=== PATIENT | female | born 1985 | race Native Hawaiian/Other Pacific Islander ===

== ENCOUNTER 2017-01-16 21:27 | Emergency (ER) | payer OTHER ==
[~2017-01-16] VITALS: Ht 162.6 cm; Wt 83.2 kg
[~2017-01-16 21:27] MED LIST: BACT800T5 PO
[2017-01-16 21:35] VITALS: BP 131/87; PULSE 91; RESP 16; TEMP 98.4; O2SAT 99
[2017-01-16] MEDS ORDERED: PRENTAB7 PO (21:53)
[2017-01-16] MEDS ORDERED: SODIUM CHLORIDE 0.9% FLUSH 10 ML FLUSH IV FLUSH PRN (22:00)
[2017-01-16 22:19] LABS: BLOOD, URINE LARGE (NEG); GLUCOSE,URINE NEG (NEG); KETONE, URINE NEG (NEG); NITRITE,URINE NEG (NEG); PH, URINE 5.5 (5.0-8.5)
[2017-01-16 22:20] LABS: AUTOMATED NEUTROPHIL # 6.9 TH/MM3 (1.8-7.7); BASOPHIL # 0.3 TH/MM3 (0-0.2); BASOPHIL % 2.4 % (0.0-2.0); EOSINOPHIL # 0.2 TH/MM3 (0-0.4); EOSINOPHIL % 2.1 % (0.0-4.0); HEMATOCRIT 40.9 % (35.0-46.0); LYMPH % 31.6 % (9.0-44.0); LYMPHOCYTE # 3.6 TH/MM3 (1.0-4.8); MEAN CELL VOLUME 86.9 FL (80.0-100.0); MEAN CORPUSCULAR HEMOGLOBIN 28.5 PG (27.0-34.0); MEAN CORPUSCULAR HGB CONC 32.8 % (32.0-36.0); MONO % 4.3 % (0.0-8.0); NEUT % 59.6 % (16.0-70.0); PLATELET COUNT 307 TH/MM3 (150-450); RED CELL DISTRIBUTION WIDTH 12.7 % (11.6-17.2); WHITE BLOOD COUNT 11.5 TH/MM3 (4.0-11.0)
[2017-01-16 22:21] LABS: HEMO FLAGS DIFF FINAL
--- NOTE | 2017-01-16 22:25 | PD ---
HPI Chief Complaint: Related Problem Time Seen by Provider: 21:40 Travel History International Travel<30 days: No Contact w/Intl Traveler<30days: No Traveled to known affect area: No History of Present Illness HPI 31 yo f presents to the ED with a cc of three days of spotting with a confirmed by home Urine hCG test. She believes that she is roughly 9 weeks 6 days by LMP. She acknowledges some faint lower abdominal cramping and flank pain. No nausea or vomiting. No CP/SOB. Her first two pregnancies were high risk due to preeclampsia and GDM. She is taking vitamins and folic acid. She continues to smoke roughly a pack a day. She has not yet been to see her OB. Unsure of last pelvic exam. No fevers or rigors. No urinary sx. patient states that yesterday she had some mild cramping which was actually less than her period is usually. Denies any abdominal pain currently. PFSH Past Medical History Asthma: Yes Cardiovascular Problems: Yes (Heart murmur) Diabetes: No Diminished Hearing: No Immunizations Current: Yes Influenza Vaccination: No ?: LMP: 11/08/2016 : 3 Para: 2 Past Surgical History Section: Yes (X 2) Gynecologic Surgery: Yes ( x2) Social History Alcohol Use: No Tobacco Use: Yes (1/2 PPD ) Substance Use: No Allergies-Medications (Allergen,Severity, Reaction): Coded Allergies: shellfish derived (Verified Allergy, Severe, 01/16/17) Reported Meds & Prescriptions Reported Meds & Active Scripts Active Reported Vitamins Tablet (Pnv No.95/Ferrous Fum/Folic AC) 28 Mg Iron-800 Mcg Tablet 1 Tab PO DAILY Review of Systems Except as stated in HPI: all other systems reviewed are Neg Physical Exam Narrative GENERAL: patient is laying in bed in no acute distress SKIN: Warm and dry. HEAD: Atraumatic. Normocephalic. EYES: Pupils equal and round. No scleral icterus. No injection or drainage. ENT: No nasal bleeding or discharge. Mucous membranes pink and moist. NECK: Trachea midline. No JVD. CARDIOVASCULAR: Regular rate and rhythm. I/ systolic murmur RESPIRATORY: No accessory muscle use. Clear to auscultation. Breath sounds equal bilaterally. GASTROINTESTINAL: Abdomen soft, minimally tender to palpation in the suprapubic region, nondistended. Hepatic and splenic margins not palpable. GYNECOLOGICAL: Exam performed with female nurse supervisor [employer] service present all times, there is minimal amount of blood in the vaginal vault, cervix is closed, no cervical motion tenderness no bimanual tenderness. Uterus is not significantly enlarged consistent with a very early gestational age. MUSCULOSKELETAL: Extremities without clubbing, cyanosis, or edema. No obvious deformities. NEUROLOGICAL: Awake and alert. No obvious cranial nerve deficits. Motor grossly within normal limits. Five out of 5 muscle strength in the arms and legs. Normal speech. PSYCHIATRIC: Appropriate mood and affect; insight and judgment normal. Data Data Last Documented VS Vital Signs Date Time Temp Pulse Resp B/P (MAP) Pulse Ox O2 Delivery O2 Flow Rate FiO2 01/16/17 23:43 100 Room Air 01/16/17 23:41 97 16 01/16/17 21:35 98.4 Orders Orders Urinalysis - C+S If Indicated (01/16/17 21:40) Ed Urine Pregnancytest Poc (01/16/17 21:40) Beta Hcg (Quant/Titer) (01/16/17 21:51) Complete Blood Count With Diff (01/16/17 21:51) Iv Access Insert/Monitor (01/16/17 21:51) Ecg Monitoring (01/16/17 21:51) Oximetry (01/16/17 21:51) Sodium Chloride 0.9% Flush (Ns Flush) (01/16/17 22:00) Ed Poc Ultrasound (01/16/17 21:51) Wet Prep Profile (01/16/17 21:51) Gc And Chlamydia Pcr (01/16/17 21:51) Ed Discharge Order (01/16/17 23:21) Labs Laboratory Tests Test 01/16/17 22:06 01/16/17 22:10 01/16/17 23:17 Urine Color STRAW Urine Turbidity CLEAR Urine pH 5.5 Urine Specific [place] 1.004 Urine Protein NEG mg/dL Urine Glucose (UA) NEG mg/dL Urine Ketones NEG mg/dL Urine Occult Blood LARGE Urine Nitrite NEG Urine Bilirubin NEG Urine Leukocyte Esterase NEG Urine RBC 0-3 /hpf Urine Squamous Epithelial Cells 0-5 /hpf Urine Amorphous Sediment FEW Urine Bacteria OCC /hpf Microscopic Urinalysis Comment CULT NOT INDICATED White Blood Count 11.5 TH/MM3 Red Blood Count 4.70 MIL/MM3 Hemoglobin 13.4 GM/DL Hematocrit 40.9 % Mean Corpuscular Volume 86.9 FL Mean Corpuscular Hemoglobin 28.5 PG Mean Corpuscular Hemoglobin Concent 32.8 % Red Cell Distribution Width 12.7 % Platelet Count 307 TH/MM3 Mean Platelet Volume 9.5 FL Neutrophils (%) (Auto) 59.6 % Lymphocytes (%) (Auto) 31.6 % Monocytes (%) (Auto) 4.3 % Eosinophils (%) (Auto) 2.1 % Basophils (%) (Auto) 2.4 % Neutrophils # (Auto) 6.9 TH/MM3 Lymphocytes # (Auto) 3.6 TH/MM3 Monocytes # (Auto) 0.5 TH/MM3 Eosinophils # (Auto) 0.2 TH/MM3 Basophils # (Auto) 0.3 TH/MM3 CBC Comment DIFF FINAL Differential Comment Human Chorionic Gonadotropin, Quant 9652 MIU/ML Clue Cells (Wet Prep) PRESENT Vaginal Trichomonas (Wet Prep) NONE SEEN Vaginal Yeast (Wet Prep) NONE SEEN MDM Medical Decision Making Medical Screen Exam Complete: Yes Emergency Medical Condition: Yes Differential Diagnosis spontaneous , threatened , ectopic , intrauterine , Narrative Course Patient last type and cross here did show Rh+ blood. Her abdomen is completely benign and she is not endorsing any abdominal pain currently. I think ectopic is very low on the differential diagnosis. Beta hCG is 9000, H&H is within normal limits. Exam is fairly benign. Think her presentation really is consistent with a threatened miscarriage. Bedside ultrasound was discussed with the patient is inconclusive for intrauterine with highly suggestive of. Given her benign abdomen I think it may be overly cautious to disorder official ultrasound now. After complete discussion of the risks of ectopic with the patient and my index is suspicion she would like to forego internal pelvic ultrasound at this time. I discussed with her that she needs to return in 48 hours for repeat hCG and consideration of an ultrasound at that time. She verbalized understanding and agreement. She also has an appointment with her DRUM MAKER to establish in 4 days from now. Discussed that if she should have any abdominal pain she should return to emergency department immediately for ultrasound. She verbalizes understanding and agreement. Procedures Procedure Narrative Bedside ultrasound abdomen: Transabdominal views of the uterus with limited secondary to shadow artifact. Appears to have a gestational sac and probably faint yolk sac. Still been views are limited given that shadow artifact and are limited utility. No free fluid in the abdomen or pelvis. Diagnosis Primary Impression: Vaginal bleeding affecting early Additional Instructions: Return to ER in 48 hours for repeat blood work and consideration of ultrasound. Disposition: 01 DISCHARGE HOME Condition: Stable Young Archibald MD Jan 16, 2017 22:25
[2017-01-16 22:31] LABS: URINE COLOR STRAW (YELLW/STRAW)
[2017-01-16 22:32] LABS: BACTERIA, URINE OCC /hpf
[2017-01-16 22:33] LABS: RBC, URINE 0-3 /hpf (0-3); SQUAMOUS EPITHELIAL CELL URINE 0-5 /hpf (0-5)
[2017-01-16 22:34] LABS: COMMENT (UR) CULT NOT INDICATED; CULTURE IF INDICATED CULT NOT INDICATED
[2017-01-16 22:55] LABS: BETA HCG QUANT 9652 MIU/ML (0-5)
[2017-01-16 23:41] VITALS: BP 124/61
[2017-01-16 23:43] VITALS: O2SAT 100
[2017-01-17 04:17] LABS: CHLAMYDIA PCR NOT DETECTED (NOT DETECT); NEISSERIA PCR NOT DETECTED (NOT DETECT)
[2017-01-17] MEDS ORDERED: METR-1 PO (23:46)
== END 2017-01-16 23:45 | disposition home or self-care (01) ==
LOC: PHED 21:27
DX: O20.9 Hemorrhage in early pregnancy, unspecified (principal); O99.331 Smoking (tobacco) complicating pregnancy, first trimester; F17.210 Nicotine dependence, cigarettes, uncomplicated; Z3A.09 9 weeks gestation of pregnancy
CPT/HCPCS: 81001; 84702; 84703; 85025; 87210; 87491; 87591; 99284

== ENCOUNTER 2017-01-17 21:51 | Emergency (ER) | payer OTHER ==
[~2017-01-17 21:51] MED LIST changes: -BACT800T5 PO; +PRENTAB7 PO
[2017-01-17 21:56] VITALS: BP 144/84; PULSE 100; RESP 18; TEMP 98.5; O2SAT 98
--- NOTE | 2017-01-17 22:11 | PD ---
HPI Chief Complaint: [employer] Adviser Problem/Complaint Time Seen by Provider: 22:00 Travel History International Travel<30 days: No Contact w/Intl Traveler<30days: No Traveled to known affect area: No History of Present Illness HPI The patient is a 31-year-old female who is , who presents to the emergency department for abdominal cramping and spotting in . The patient's last menstrual cycle was approximately October 31, 2016. The patient was seen on January 16, 2017 and had blood work performed which revealed a beta hCG of 9652. The patient was advised to return in 48 hours for repeat beta hCG. She does complain of mild lower intermittent abdominal cramping and spotting, thinks she may have passed tissue earlier today which appear to be a blood clot. The cramping is intermittent, associated with a small amount of spotting, but there is no significant vaginal discharge. She denies any dysuria , frequency, or urgency. She has a follow-up appointment with an fruit grower this coming . The patient's first 2 pregnancies were deliveries, she denies any history of vaginal bleeding or spotting during her previous pregnancies. The patient's blood type is O+. PFSH Past Medical History Asthma: Yes Cardiovascular Problems: Yes (Heart murmur) Diabetes: No Diminished Hearing: No Immunizations Current: Yes Influenza Vaccination: No ?: LMP: 18 17 : 3 Para: 2 Past Surgical History Section: Yes (X 2) Gynecologic Surgery: Yes ( x2) Social History Alcohol Use: No Tobacco Use: Yes (1/2 PPD ) Substance Use: No Allergies-Medications (Allergen,Severity, Reaction): Coded Allergies: shellfish derived (Verified Allergy, Severe, 01/17/17) Reported Meds & Prescriptions Reported Meds & Active Scripts Active Reported Vitamins Tablet (Pnv No.95/Ferrous Fum/Folic AC) 28 Mg Iron-800 Mcg Tablet 1 Tab PO DAILY Review of Systems Except as stated in HPI: all other systems reviewed are Neg HENT: No: Lightheadedness Cardiovascular: No: Chest Pain or Discomfort Respiratory: No: Shortness of Breath Gastrointestinal: No: Nausea, Vomiting, Abdominal Pain Genitourinary: Positive: Pelvic Pain (cramping), Vaginal Bleeding, No: Urgency , Frequency, Dysuria, Discharge Physical Exam Narrative GENERAL: Awake, alert, pleasant 31 year-old female who appears her stated age and is in no acute respiratory distress. SKIN: Focused skin assessment warm/dry. HEAD: Atraumatic. Normocephalic. EYES: No injection or drainage. ENT: No nasal bleeding or discharge. Mucous membranes pink and moist. NECK: Trachea midline. No JVD. CARDIOVASCULAR: Regular rate and rhythm. No murmur appreciated. RESPIRATORY: No accessory muscle use. Clear to auscultation. Breath sounds equal bilaterally. GASTROINTESTINAL: Abdomen soft, non-tender, nondistended. No rebound tenderness , guarding, rigidity. Back: No CVA tenderness. MUSCULOSKELETAL: No obvious deformities. No clubbing. No cyanosis. No edema. NEUROLOGICAL: Awake and alert. No obvious cranial nerve deficits. Motor grossly within normal limits. Normal speech. PSYCHIATRIC: Appropriate mood and affect; insight and judgment normal. Data Data Last Documented VS Vital Signs Date Time Temp Pulse Resp B/P (MAP) Pulse Ox O2 Delivery O2 Flow Rate FiO2 01/17/17 23:00 84 14 119/61 (80) 98 Room Air 01/17/17 21:56 98.5 Orders Orders Beta Hcg (Quant/Titer) (01/17/17 22:07) Ed Discharge Order (01/17/17 23:37) Labs Laboratory Tests Test 01/17/17 22:20 Human Chorionic Gonadotropin, Quant 7114 MIU/ML [facility] Medical Decision Making Medical Screen Exam Complete: Yes Emergency Medical Condition: Yes Medical Record Reviewed: Yes Interpretation(s) Laboratory Tests Test 01/17/17 22:20 Human Chorionic Gonadotropin, Quant 7114 MIU/ML Differential Diagnosis Differential diagnosis includes normal , threatened AB, incomplete AB, ectopic , vaginitis, cervicitis, UTI, dehydration. Narrative Course I reviewed the patient's EMR, she was evaluated by Dr. Archibald, on January 16, 2017. The patient had a beta ACG at that time and 9652. The patient did have a wet prep performed which was positive for bacterial vaginosis/clue cells, she states she is not taking any medications for the clue cells. I reviewed the EMR , the patient has a blood bank performed on June 03, 2003 which revealed she is O+, therefore, no indication for RhoGAM. Quantitative beta hCG was sent to lab. The patient's beta ACG did fall to 7114, most likely spontaneous . The patient was positive for clue cells on her previous visit, I had a discussion regarding treatment with Flagyl, she would prefer treatment. Therefore, the patient will be placed on Flagyl 500 mg twice a day for one week. She will be provided a copy of her last 2 beta ACG quantitative numbers to follow-up with her fruit grower so they can try and the beta ACG until it's negative. Diagnosis Primary Impression: Spontaneous Additional Impression: Bacterial vaginosis Patient Instructions: General Instructions Additional Instructions: Flagyl as directed. Please provide the patient a copy of her last 2 quantitative beta hCGs. Follow-up with your fruit grower as scheduled on . Return sooner if symptoms worsen or progress. Med/Other Pt SpecificInfo: Prescription(s) given Disposition: DISCHARGE HOME Condition: Stable Dm Pickett MD Jan 17, 2017 22:11
[2017-01-17 23:00] VITALS: BP 119/61; PULSE 84; RESP 14; O2SAT 98
[2017-01-17 23:31] LABS: BETA HCG QUANT 7114 MIU/ML (0-5)
[2017-01-17] MEDS ORDERED: METR-1 PO (23:46)
== END 2017-01-17 23:54 | disposition home or self-care (01) ==
LOC: PHED 21:51
DX: O03.9 Complete or unspecified spontaneous abortion without complication (principal); N76.0 Acute vaginitis; R10.2 Pelvic and perineal pain; F17.200 Nicotine dependence, unspecified, uncomplicated; Z87.09 Personal history of other diseases of the respiratory system; Z86.79 Personal history of other diseases of the circulatory system; Z3A.00 Weeks of gestation of pregnancy not specified
CPT/HCPCS: 84702; 99283